=== PATIENT | female | born 1985 | race Caucasian/White ===

== ENCOUNTER 2025-03-29 17:36 | Emergency (ER) | payer MEDICAID, OTHER ==
[~2025-03-29] VITALS: Ht 165.1 cm; Wt 87.0 kg
[2025-03-29 17:46] VITALS: BP 126/74; PULSE 109; RESP 18; TEMP 36.7; O2SAT 99
[2025-03-30] MEDS ORDERED: SULF1TAB48 MT (05:18)
[2025-03-30] MEDS ORDERED: IBUP-1455 MT (05:18)
[2025-03-30] MEDS ORDERED: CEPH500T MT (05:18)
== END 2025-03-29 20:19 | disposition left against medical advice (07) ==
LOC: ER 17:36
DX: S81.852A Open bite, left lower leg, initial encounter (principal); W57.XXXA Bitten or stung by nonvenomous insect and other nonvenomous arthropods, initial encounter; Y93.89 Activity, other specified; Y92.89 Other specified places as the place of occurrence of the external cause; Y99.8 Other external cause status
CPT/HCPCS: 99281

== ENCOUNTER 2025-03-30 04:32 | Emergency (ER) | payer MEDICAID ==
[~2025-03-30] VITALS: Ht 165.1 cm; Wt 63.5 kg
[2025-03-30 04:33] VITALS: O2SAT 98
[2025-03-30] MEDS ORDERED: IBUP-1455 MT (05:18)
[2025-03-30] MEDS ORDERED: CEPH500T MT (05:18)
[2025-03-30] MEDS ORDERED: SULF1TAB48 MT (05:18)
[2025-03-30 05:31] VITALS: BP 114/80; PULSE 89; RESP 14; TEMP 36.9; O2SAT 100
== END 2025-03-30 05:33 | disposition home or self-care (01) ==
LOC: ER 04:32
DX: L02.416 Cutaneous abscess of left lower limb (principal); L03.116 Cellulitis of left lower limb; F15.90 Other stimulant use, unspecified, uncomplicated; Z79.899 Other long term (current) drug therapy
CPT/HCPCS: 10060; 99284; Z7610 ×3